=== PATIENT | female | born 2000 | race Caucasian/White ===

== ENCOUNTER 2022-03-01 16:02 | Inpatient (IN) | payer MEDICAID ==
[~2022-03-01] VITALS: Ht 149.9 cm; Wt 138.0 kg
[2022-03-01] MEDS ORDERED: ceFAZolin SODIUM 2 GM VIAL ONE (17:50)
[2022-03-01] MEDS: ceFAZolin SODIUM 2 GM in D5W 100 ML IV SCH (18:01)
[2022-03-01 18:02] LABS: BILIRUBIN,URINE NEGATIVE (NEGATIVE); BLOOD, URINE NEGATIVE (NEGATIVE); COLOR,URINE YELLOW (YELLOW); GLUCOSE,URINE NEGATIVE (NEGATIVE); KETONES,URINE 2+ (NEGATIVE); LEUKOCYTE ESTERASE ,URINE 1+ (NEGATIVE); NITRITE, URINE NEGATIVE (NEGATIVE); PH,URINE 7.5 (5.0-8.0); PROTEIN URINE NEGATIVE (NEGATIVE); UROBILINOGEN,URINE 0.2 (0.2-1.0)
[2022-03-01] MEDS: ACETAMINOPHEN 500 MG TABLET PO PRN (18:02)
[2022-03-01] MEDS: LR 1,000 ML IV SCH (18:03)
[2022-03-01 18:15] LABS: CLARITY/URINE HAZY (CLEAR)
[2022-03-01 18:19] LABS: BACTERIA,URINE MANY /HPF (None Seen); MUCUS,URINE None Seen /LPF (None Seen); RBC,URINE 0-3 /HPF (0-3)
[2022-03-02] MEDS: ACETAMINOPHEN 500 MG TABLET PO PRN (00:46)
[2022-03-02 02:09] VITALS: BP_SYST 114
[2022-03-02] MEDS: ceFAZolin SODIUM 2 GM in D5W 100 ML IV SCH ×2 (09:23→18:00)
[2022-03-02] MEDS: LR 1,000 ML IV SCH ×2 (13:57→21:30)
[2022-03-02] MEDS ORDERED: DOCUSATE SODIUM 100 MG CAPSULE PO ONE (14:00)
[2022-03-03] MEDS ORDERED: DOCUSATE SODIUM 100 MG CAPSULE PO SCH (09:00)
[2022-03-03] MEDS: ceFAZolin SODIUM 2 GM in D5W 100 ML IV SCH (10:37)
== END 2022-03-03 13:55 | disposition home or self-care (01) | DRG 566 ==
LOC: SPU 16:02 → OBSVTOIN 16:25
PROVIDERS: ADMIT Obstetrics & Gynecology; ATTEND Obstetrics & Gynecology
DX: O23.02 Infections of kidney in pregnancy, second trimester (principal); Z20.822 Contact with and (suspected) exposure to COVID-19; Z3A.24 24 weeks gestation of pregnancy
CPT/HCPCS: 36415; 81000; 87086; G0378; J7060

== ENCOUNTER 2022-05-29 23:26 | Inpatient (IN) | payer MEDICAID ==
[~2022-05-29] VITALS: Ht 149.9 cm; Wt 73.5 kg
[2022-05-30] MEDS ORDERED: LR 1,000 ML IV ONE ×2 (01:00→05:30)
[2022-05-30] MEDS ORDERED: LR 1,000 ML IV SCH ×2 (02:00→05:30)
[2022-05-30] MEDS ORDERED: NALBUPHINE HCL 10 MG/ML AMP IVP PRN (05:30)
[2022-05-30] MEDS ORDERED: OXYTOCIN/0.9 % SODIUM CHLORIDE 1,000 ML IV SCH ×2 (05:30→15:30)
[2022-05-30] MEDS ORDERED: TERBUTALINE SULFATE 1 MG/ML VIAL SUBCUT ONE (05:30)
[2022-05-30] MEDS ORDERED: AMPICILLIN SODIUM 2 GM in NS 100 ML IV ONE (06:00)
[2022-05-30] MEDS ORDERED: AMPICILLIN SODIUM 2 GM VIAL ONE (06:04)
[2022-05-30 06:20] LABS: BASOPHILS % (AUTO) 0.1 % (0.0-2.0); EOSINOPHILS % (AUTO) 0.2 % (0.0-4.0); HEMATOCRIT 37.1 % (36-48); HEMOGLOBIN 12.7 g/dL (12.0-16.0); LYMPHOCYTES # (AUTO) 1.8 K/uL (1.0-5.5); LYMPHOCYTES % (AUTO) 10.8 % (20.5-51.5); MEAN CORPUSCULAR HEMOGLOBIN 32 pg (27-31); MEAN CORPUSCULAR HGB CONC 34 % (32-36); MEAN CORPUSCULAR VOLUME 93 fL (79.0-98.0); MONOCYTES # (AUTO) 1.1 K/uL (0.0-1.0); MONOCYTES % (AUTO) 6.5 % (1.7-9.3); NEUTROPHILS # (AUTO) 13.6 K/uL (1.8-7.7); NEUTROPHILS % (AUTO) 82.4 % (40.0-70.0); PLATELET COUNT (AUTO) 163 K/uL (130-430); RED BLOOD CELL COUNT(AUTO) 3.98 MIL/uL (4.2-6.2); RED CELL DISTRIBUTION WIDTH 14.5 % (9.0-15.0); WHITE BLOOD COUNT (AUTO) 16.5 K/uL (4.8-10.8)
[2022-05-30 06:25] VITALS: BP_SYST 115
[2022-05-30] MEDS ORDERED: LIGHT MINERAL OIL 10 ML VIAL MC ONE (08:24)
[2022-05-30] MEDS ORDERED: NALOXONE HCL 0.4 MG/ML AMP (NARCAN) ONE (08:24)
[2022-05-30] MEDS ORDERED: LIDOCAINE PF 1% 30ML(POUR BTL) INJ ONE (08:24)
[2022-05-30] MEDS: AMPICILLIN SODIUM 1 GM in NS 50 ML IV SCH ×2 (10:01→13:52)
[2022-05-30] MEDS ORDERED: METHYLERGONOVINE MALEATE 0.2 MG TABLET PO PRN (15:30)
[2022-05-30] MEDS ORDERED: DERMOPLAST SPRAY TP PRN (15:30)
[2022-05-30] MEDS ORDERED: ANUSOL 1 EA SUPP.RECT (PREPARATION H) RC PRN (15:30)
[2022-05-30] MEDS ORDERED: HYDROCORTISONE 0.5% CREAM 28.4 GM CREAM.GM. TP PRN (15:30)
[2022-05-30] MEDS ORDERED: LANOLIN 7 GM OINT. TP PRN (15:30)
[2022-05-30] MEDS ORDERED: WITCH HAZEL LEAF 1 MED.PAD MED.PAD TP PRN (15:30)
[2022-05-30] MEDS ORDERED: OXYTOCIN/0.9 % SODIUM CHLORIDE 1,000 ML IV ONE (15:30)
[2022-05-30] MEDS ORDERED: OXYCODONE/ACETAMINOPHEN 5-325 TABLET PO PRN ×2 (15:30)
[2022-05-30] MEDS ORDERED: TEMAZEPAM 15 MG CAPSULE PO PRN (21:00)
[2022-05-30] MEDS: SENNOSIDES/DOCUSATE SODIUM 1 TAB TABLET(SENOKOT-S) PO SCH (21:05)
[2022-05-30] MEDS: IBUPROFEN 800 MG TABLET PO PRN (23:48)
[2022-05-31 07:50] LABS: HEMATOCRIT 28.5 % (36-48); HEMOGLOBIN 9.6 g/dL (12.0-16.0)
[2022-05-31] MEDS ORDERED: DOCUSATE SODIUM 100 MG CAPSULE PO SCH (09:00)
[2022-05-31] MEDS: IBUPROFEN 800 MG TABLET PO PRN ×3 (12:22→23:32)
[2022-05-31] MEDS: SENNOSIDES/DOCUSATE SODIUM 1 TAB TABLET(SENOKOT-S) PO SCH (20:52)
[2022-06-01] MEDS: IBUPROFEN 800 MG TABLET PO PRN (06:02)
== END 2022-06-01 11:22 | disposition home or self-care (01) | DRG 560 ==
LOC: SPU 23:26 → OBSVTOIN 05-30 05:13
PROVIDERS: ADMIT Obstetrics & Gynecology; ATTEND Obstetrics & Gynecology
PROC: 10E0XZZ Delivery of Products of Conception, External Approach (ICD-10-PCS; principal; 2022-05-30)
PROC: 0W8NXZZ Division of Female Perineum, External Approach (ICD-10-PCS; 2022-05-30)
DX: O80 Encounter for full-term uncomplicated delivery (principal); Z37.0 Single live birth; R71.0 Precipitous drop in hematocrit; Z20.822 Contact with and (suspected) exposure to COVID-19; Z3A.37 37 weeks gestation of pregnancy
CPT/HCPCS: 36415; 81002; 85018; 85025; 86592; 86886; 86900; 86901; G0378; J0290; J2001; J2310; J2590